=== PATIENT | male | born 1965 | race Caucasian/White ===

== ENCOUNTER → 2017-11-23 | Outpatient (CLI) | payer OTHER ==
[~2017-11-23] MED LIST: ACIPHEX 20 MG T20 MG PO; AMOXICILLIN875 MG PO; ASPIR 8181 M1 PO; FISH OIL 1,0001 EAC5 PO; FLEXERIL PO; GLUCOPHAGE850 MG PO; GLUCOTROL5 MG PO; HYDROCODONE-AP1 EAC6 PO; IBUPROFEN 800800 MG PO; LIPITOR 20 MG T20 M1 PO; LISINOPRIL5 MG PO; METFORMIN HCL500 MG PO; NORCO 5-325 TA1 EACH PO; PROAIR HFA8.5 GM INH; TESSALON PERLE100 MG PO; TRAMADOL 50 MG50 MG PO; VIAGRA100 MG PO; XANAX 0.25 MG0.25 MG PO; XANAX 0.5 MG0.5 MG PO; ZPAK PO
--- NOTE | 2017-12-08 09:02 | PAINCON ---
[address] [address] PAIN MANAGEMENT CONSULTATION Name: MADIE SORIANO JR Room: [facility].#: [id number] Admission: 11/23/17 Attend Phys: Jens Fernandez DO Discharge: Date of : 61 Report #: [id number] THIS REPORT FOR: //name// CC: Jens Briggs DO DATE OF SERVICE: 11/23/2017 REFERRING PHYSICIAN: Karla Briggs DO CHIEF COMPLAINT: Low back pain, right lower extremity pain and paresthesias. HISTORY OF PRESENT ILLNESS: As you know, the patient is a very pleasant 52-year-old male who returns today in followup visit requesting to undergo the next in a series of epidural injections. He reports greater than 50% improvement in overall pain with previous injection, hoping to see similar improvement today. The patient indicates no new injury, no new trauma that may have led to recurrence of symptoms. He is placing pain score at 4/10. He states he is very happy with the results of the injections and is hopeful to see similar improvement with today's procedure to build on success of previous intervention. He has denied any new injury, new trauma that may have led to progression of pain. ALLERGIES: No known drug allergies. CURRENT MEDICATIONS: Aspirin, cyclobenzaprine, hydrocodone, lisinopril, Viagra, Ultram and Xanax. SOCIAL HISTORY: The patient denies tobacco, alcohol, IV or illicit drug use. He is employed as a software quality tester professional, working, not receiving workmen's compensation, unaccompanied today. IMAGING: No new imaging available. PHYSICAL EXAMINATION: VITAL SIGNS: Blood pressure 125/80, pulse 94, respiratory rate 16, unlabored, the patient is 95% on room air, current temperature 98.1 degrees Fahrenheit, height 5 feet 5 inches tall, weight 205 pounds, BMI calculated at 34. GENERAL: Well-developed, well-nourished, well-hydrated 52-year-old male appearing stated age. He is placing current pain score 4/10. HEENT: Normocephalic, atraumatic. Pupils equal, round, reactive to light. EXTREMITIES: Show no clubbing, no cyanosis, no edema. MUSCULOSKELETAL: Seated straight leg raising negative. Supine straight leg raising positive on the right. MAGAN test negative. Muscle bulk and tone equal and [place] [address] PAIN MANAGEMENT CONSULTATION Name: MADIE SORIANO JR Room: [facility]#: [id number] Admission: 11/23/17 Attend Phys: Jens Fernandez DO Discharge: Date of : 61 Report #: [id number] ASSESSMENT: 1. Symptomatic lumbar radiculopathy. 2. Displacement of lumbar intervertebral disk with radiculopathy. 3. Lumbosacral spondylosis with radiculopathy. 4. Chronic intractable pain. PLAN: 1. The patient returns today in followup visit to undergo next in the series of epidural injections. He reports good efficacy with previous injection reporting 50% improvement or better. He is now placing pain score 4/10. He returned today in followup visit to undergo the next in a series of epidural injections in hopes of improving pain further. He has been advised risks and benefits of the procedure, states he understood and wished to proceed. 2. No medication changes were made at today's visit. The patient to continue current medical therapy as previously prescribed. 3. The patient to return to our clinic on an as needed basis for the next in a series of epidural injections. PROCEDURE NOTE DESCRIPTION OF PROCEDURE: Lumbar epidural steroid injection under fluoroscopic guidance. After obtaining written consent, the patient was taken back to fluoroscopy suite, placed in prone position with pillow under abdomen to decrease lumbar lordosis. Skin overlying lumbosacral area then prepped and draped in aseptic fashion. Lumbar intervertebral spaces were identified by AP fluoroscopy. Skin and subcutaneous tissue overlying target site of injection was anesthetized with 3 mL of 1% lidocaine. A 20-gauge 3-1/2 inch Tuohy needle advanced under fluoroscopic guidance towards the epidural space using paramedian approach. Epidural space identified using loss of resistance to air technique. After negative aspiration for heme or cerebrospinal fluid, 1 mL of Omnipaque was injected. Lumbar epidurogram was confirmed using both AP and lateral fluoroscopy. After negative aspiration for heme or cerebrospinal fluid, 5 mL of a solution containing 2 mL 40 mg per mL, 80 mg total triamcinolone, 3 mL lidocaine 1% injected slowly. Needle retracted correction, needle tract flushed with 3 mL of 1% lidocaine. Needle removed. Sterile bandage placed over injection site. No new motor deficits present in the lower extremities following procedure. The patient tolerated the procedure well, carefully escorted to the recovery [address] [place] [address] PAIN MANAGEMENT CONSULTATION Name: MADIE SORIANO JR Room: [facility]#: [id number] Admission: 11/23/17 Attend Phys: Jens Fernandez DO Discharge: Date of : 61 Report #: [id number] room in stable condition. No apparent complications. After meeting discharge criteria, the patient discharged home. <ELECTRONICALLY SIGNED> By: Jens Fernandez DO 12/08/17 0902 0847 1915Jens Fernandez DO /nt
== END | disposition home or self-care (01) ==
LOC: M.PC 00:56
DX: M51.16 Intervertebral disc disorders with radiculopathy, lumbar region (principal); M47.27 Other spondylosis with radiculopathy, lumbosacral region; G89.29 Other chronic pain; Z68.34 Body mass index [BMI] 34.0-34.9, adult; Z79.899 Other long term (current) drug therapy

== ENCOUNTER 2017-12-04 17:17 | Emergency (ER) | payer OTHER ==
[~2017-12-04] VITALS: Ht 162.6 cm; Wt 93.9 kg
[~2017-12-04 17:17] MED LIST changes: -GLUCOPHAGE850 MG PO; -GLUCOTROL5 MG PO; -LIPITOR 20 MG T20 M1 PO; -NORCO 5-325 TA1 EACH PO; -PROAIR HFA8.5 GM INH; -TESSALON PERLE100 MG PO; -XANAX 0.5 MG0.5 MG PO; -ZPAK PO
[2017-12-04] MEDS ORDERED: XANAX 0.5 MG0.5 MG PO (17:32)
[2017-12-04 18:17] LABS: ABSOLUTE LYMPHOCYTES 1.2 thou/uL (0.8-5.3); ABSOLUTE MONOCYTES 0.7 thou/uL (0.0-1.2); ABSOLUTE NEUTROPHILS 5.7 thou/uL (1.6-8.1); BASOPHILS 0.2 %; EOSINOPHILS 0.3 %; HEMATOCRIT 42.8 % (42.0-52.0); HEMOGLOBIN 14.9 gm/dL (14.0-18.0); LYMPHOCYTES 15.2 %; MCH 31.9 pg (26.0-34.0); MCHC 34.7 g/dL (28.0-37.0); MCV 91.9 fL (80.0-100.0); MONOCYTES 9.1 %; MPV 8.1 fl. (7.2-11.1); NUCLEATED RBCS 0 /100WBC; PLATELET COUNT* 266 thou/uL (150-400); POLYS 75.2 %; RBC 4.65 mil/uL (4.50-6.00); RDW-CV 13.4 % (10.5-14.5); WBC 7.6 thou/uL (4.0-11.0)
[2017-12-04 18:23] LABS: PCO2 29.2 mmHg (35.0-45.0); PO2 90.9 mmHg (75.0-100.0); pH 7.403 (7.340-7.450)
[2017-12-04 18:24] LABS: BE -5.6 mmol/L (-2 to +3); HCO3 17.8 mmol/L (22.0-26.0)
[2017-12-04 18:38] LABS: CALCIUM 9.3 mg/dL (8.5-10.1); CREATININE 1.5 mg/dL (0.6-1.3); POTASSIUM 4.5 mmol/L (3.5-5.1)
[2017-12-04 18:39] LABS: ALBUMIN 3.7 g/dL (3.4-5.0); TOTAL BILIRUBIN 0.5 mg/dL (<0.1-1.0); TOTAL PROTEIN 7.5 g/dL (6.4-8.2)
[2017-12-04 19:03] LABS: URINE BILIRUBIN NEGATIVE (Negative); URINE BLOOD NEGATIVE (Negative); URINE CLARITY CLEAR; URINE COLOR STRAW; URINE GLUCOSE-RANDOM 3+ (Negative); URINE KETONES TRACE (Negative); URINE LEUKOCYTES-REFLEX NEGATIVE (Negative); URINE NITRITE-REFLEX NEGATIVE (Negative); URINE PROTEIN NEGATIVE (Negative); URINE UROBILINOGEN 0.2 E.U./dl (0.2-1.0)
[2017-12-04] MEDS ORDERED: GLUCOTROL5 MG PO (19:03)
[2017-12-04] MEDS ORDERED: GLUCOPHAGE850 MG PO (19:03)
[2017-12-04 19:51] VITALS: BP 123/76
--- NOTE | 2017-12-05 11:47 | EKG ---
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[facility] : 1965 Requested By: Feliberto Garner Order Number: [id number] MD: Keyur Carlton Measurements Intervals [place] Rate: 100 P: 49 UT: 127 QRS: 68 QRSD: 97 T: 42 QT: 334 QTc: 431 Interpretive Statements Sinus tachycardia Borderline low voltage, extremity leads No previous ECG available for comparison Electronically Signed On 12-05-2017 11:46:51 MARINE MAMMAL TRAINER by Keyur Carlton [email or web address] <ELECTRONICALLY SIGNED> By: Keyur Carlton MD, [facility] 12/05/17 1146 1738 1738 Keyur Carlton MD, FACC /EPI
[2018-02-09] MEDS ORDERED: TRAMADOL 50 MG50 MG PO (11:51)
[2018-02-09] MEDS ORDERED: NORCO 5-325 TA1 EACH PO (11:52)
== END 2017-12-04 19:53 | disposition home or self-care (01) ==
LOC: M.ERS 17:17
PROVIDERS: Emergency Medicine
DX: E11.65 Type 2 diabetes mellitus with hyperglycemia (principal); I10 Essential (primary) hypertension; K21.9 Gastro-esophageal reflux disease without esophagitis; Z98.890 Other specified postprocedural states

== ENCOUNTER 2017-12-08 13:27 | Emergency (ER) | payer OTHER ==
[~2017-12-08] VITALS: Ht 162.6 cm; Wt 88.5 kg
[~2017-12-08 13:27] MED LIST changes: +GLUCOPHAGE850 MG PO; +GLUCOTROL5 MG PO; +XANAX 0.5 MG0.5 MG PO
[2017-12-08] MEDS ORDERED: METFORMIN HCL500 MG PO (13:43)
[2017-12-08] MEDS ORDERED: LIPITOR 20 MG T20 M1 PO (13:44)
[2017-12-08] MEDS ORDERED: GLUCOTROL5 MG PO (13:44)
[2017-12-08 14:05] LABS: INFLUENZA A ANTIGEN None Detected (None Detect)
[2017-12-08 14:06] LABS: INFLUENZA B ANTIGEN None Detected (None Detect)
[2017-12-08 14:24] LABS: HEMATOCRIT 41.9 % (42.0-52.0); HEMOGLOBIN 14.8 gm/dL (14.0-18.0); MCH 31.3 pg (26.0-34.0); MCHC 35.4 g/dL (28.0-37.0); MCV 88.4 fL (80.0-100.0); MPV 7.5 fl. (7.2-11.1); NUCLEATED RBCS 0 /100WBC; PLATELET COUNT* 246 thou/uL (150-400); RBC 4.74 mil/uL (4.50-6.00); RDW-CV 13.6 % (10.5-14.5); WBC 12.9 thou/uL (4.0-11.0)
[2017-12-08 14:32] LABS: CALCIUM 9.1 mg/dL (8.5-10.1); CREATININE 1.1 mg/dL (0.6-1.3); POTASSIUM 3.9 mmol/L (3.5-5.1)
[2017-12-08 14:37] LABS: ALBUMIN 3.2 g/dL (3.4-5.0); TOTAL BILIRUBIN 0.5 mg/dL (<0.1-1.0)
[2017-12-08 15:28] LABS: ABSOLUTE BASOPHILS 0.1 thou/uL (0.0-0.2); ABSOLUTE LYMPHOCYTES 0.4 thou/uL (0.8-5.3); ABSOLUTE MONOCYTES 1.3 thou/uL (0.0-1.2); ABSOLUTE NEUTROPHILS 11.1 thou/uL (1.6-8.1)
[2017-12-08 15:29] LABS: PLATELET ESTIMATE ADEQUATE
[2017-12-08 16:12] LABS: URINE BILIRUBIN NEGATIVE (Negative); URINE BLOOD NEGATIVE (Negative); URINE CLARITY CLEAR; URINE COLOR YELLOW; URINE GLUCOSE-RANDOM 3+ (Negative); URINE KETONES NEGATIVE (Negative); URINE LEUKOCYTES-REFLEX NEGATIVE (Negative); URINE NITRITE-REFLEX NEGATIVE (Negative); URINE PROTEIN NEGATIVE (Negative); URINE SPECIFIC GRAVITY <= 1.005 (1.005-1.030); URINE UROBILINOGEN 0.2 E.U./dl (0.2-1.0)
[2017-12-08] MEDS ORDERED: ZPAK PO (17:07)
[2017-12-08] MEDS ORDERED: TESSALON PERLE100 MG PO (17:07)
[2017-12-08] MEDS ORDERED: PROAIR HFA8.5 GM INH (17:07)
[2017-12-08 17:31] LABS: TROPONIN-I LEVEL <0.06 ng/mL (<0.06)
[2017-12-08 17:57] VITALS: BP 99/72
--- NOTE | 2017-12-09 11:46 | EKG ---
[place] [address] ELECTROCARDIOGRAM REPORT Name: KERMIT SORIANOMadhav BENOIT Room: [facility]#: [id number] Admission: 12/08/17 Attend Phys: Discharge: 12/08/17 Date of : 61 Report #: [id number] THIS REPORT FOR: //name// [facility] [place] ED Test Date: 2017-12-08 Test Time: 17:47:07 Pat Name: MADIE SORIANO Department: Room: Gender: M Car Inspection And Repair Manager: : 1965 Requested By: Diana Jackson Order Number: [id number] MD: Guy Parker Measurements Intervals [place] Rate: 126 P: 22 DC: 128 QRS: 24 QRSD: 87 T: 2 QT: 305 QTc: 442 Interpretive Statements Sinus tachycardia Probable left atrial enlargement Low voltage, extremity leads Baseline wander in lead(s) V1 Compared to ECG 12/04/2017 17:38:10 rate increased Electronically Signed On 12-09-2017 11:46:23 COMPOSITION PROFESSOR by Guy Parker [email or web address] <ELECTRONICALLY SIGNED> By: Guy Parker MD, [facility] 12/09/17 1146 1747 1747 Guy Parker MD, [facility] /EPI
[2018-02-09] MEDS ORDERED: TRAMADOL 50 MG50 MG PO (11:51)
[2018-02-09] MEDS ORDERED: NORCO 5-325 TA1 EACH PO (11:52)
== END 2017-12-08 17:58 | disposition home or self-care (01) ==
LOC: M.ERS 13:27
PROVIDERS: Nurse Practitioner Family
DX: J20.9 Acute bronchitis, unspecified (principal); K21.9 Gastro-esophageal reflux disease without esophagitis; E11.9 Type 2 diabetes mellitus without complications

== ENCOUNTER → 2018-02-09 | Outpatient (CLI) | payer OTHER ==
[~2018-02-09] MED LIST changes: +LIPITOR 20 MG T20 M1 PO; +NORCO 5-325 TA1 EACH PO; +PROAIR HFA8.5 GM INH; +TESSALON PERLE100 MG PO; +ZPAK PO
--- NOTE | 2018-02-17 08:21 | PAINCON ---
[address] [address] PAIN MANAGEMENT CONSULTATION Name: MADIE SORIANO JR [id number] Admission: 02/09/18 Attend Phys: Bijal Graves MD Discharge: Date of : 61 Report #: [id number] THIS REPORT FOR: //name// CC: Karla Delarosa DATE OF SERVICE: 02/09/2018 PRIMARY CARE PHYSICIAN: Karla Briggs DO. CHIEF COMPLAINT: Low back pain. FOLLOWUP HISTORY: The patient is a 52-year-old gentleman who has been seen in the Pain Clinic because of low back pain. He has a longstanding history of low back pain involving the right lower extremity with paresthesias. He indicates the epidural steroid injections have been helpful in the past. He denies any injury or trauma in the past. He has had epidural steroid injections dating back to 2002 with good efficacy. He is having pain in this similar lumbar distribution. He has had conservative medical therapy in the past with home stretching exercises and medical management. Those have proved ineffective. He has been seen by Dr. Jens Fernandez and undergone epidural steroid injections. He has returned today for another epidural steroid injection. Pain is worse with prolonged standing, prolonged sitting and finds that medication and rest appear to be the only items that continue to improve his level of comfort. ALLERGIES: No known drug allergies. CURRENT MEDICATIONS: Include: 1. ProAir p.r.n. use of 1-2 puffs albuterol inhaler. 2. Lipitor 20 mg tablets. 3. Hydrocodone 5/325 one p.o. q. 6 hours p.r.n. pain. 4. Lisinopril 5 mg daily. 5. Metformin 500 mg for a total of 1000 daily with meals. 6. Tramadol 50 mg q. 6 hours p.r.n. PAST MEDICAL HISTORY: 1. Diabetes type 2. 2. Hypertension. 3. Obstructive sleep apnea. 4. Gastroesophageal reflux disease. 5. Chronic low back pain. PAST SURGICAL HISTORY: Cervical spine surgery, 01/2013. SOCIAL HISTORY: He is a quality assurance intern worker. [place] [address] PAIN MANAGEMENT CONSULTATION Name: MADIE SORIANO Room: [facility]#: [id number] Admission: 02/09/18 Attend Phys: Bijal Graves MD Discharge: Date of : 61 Report #: [id number] juncture. Denies tobacco, alcohol, or illicit drugs. REVIEW OF SYSTEMS: Questionnaire in the chart indicate wears glasses, frequent urination, dysuria, nocturia, change in force with his stream, joint stiffness, swelling, muscle pain, cramping low back difficulties, insomnia, depression. A 14-point review of systems. PAIN ASSESSMENT: The patient does have some right knee pain with osteoarthritic changes. Height 5 feet 5 inches, weight 210 pounds, BMI is 35. VITAL SIGNS: Blood pressure 121/72, heart rate 90, respiratory rate 16, room air saturation 96%, temperature 98.4. Pain intensity rated as 2-3. The patient does use Biofreeze. Fall risk. The patient has not fallen in the last 3 months. The patient is not on blood thinner. Hypertension. The patient is not being treated for hypertension. Opioid use greater than 6 weeks. The patient is receiving opioids through the Pain Clinic. RISK ASSESSMENT TOOL. Functional assessment tool. Recreational drug use. The patient denies recreational drug use. Tobacco: The patient denies use of tobacco and alcohol. The patient denies use of alcoholic beverages. PHYSICAL EXAMINATION: GENERAL: The patient is a well-developed, well-nourished male. Appearance, appears his stated age. Orientation: The patient is alert and oriented x 3. AFFECT: The patient's affect is appropriate. HEENT: Normocephalic, atraumatic. Extraocular eye muscles intact, hearing within normal limits. Sclerae nonicteric. Mucous membranes moist. NEUROLOGIC: Cranial nerves 2-12 grossly intact. Speech fluent. NECK: Without adenopathy. LUNGS: Clear. No wheezing or rhonchi. ABDOMEN: Soft, obese, nontender. EXTREMITIES: No clubbing, cyanosis or edema. Upper muscle strength is judged to be 5/5 for the major muscle groups. Lower extremity, 5/5 for the major muscle groups. The patient has some pain in the right knee. Lumbar provocation testing with extension, rotation, left and right lateral bending does cause some increased axial back pain. IMPRESSION: 1. Lumbosacral spondylosis with history of radiculopathy involving pain radiating down into the L5-S1 distribution on the right. 2. Chronic low back pain. 3. [place] [address] PAIN MANAGEMENT CONSULTATION Name: MADIE SORIANO JR Room: [facility]#: [id number] Admission: 02/09/18 Attend Phys: Bijal Graves MD Discharge: Date of : 61 Report #: [id number] 4. Diabetes. RECOMMENDATIONS: We discussed treatment options with the patient. He states that he underwent an epidural steroid injection in about November. First injection was not problematic with his blood sugar. Second epidural steroid injection caused the patient to have elevated blood sugars. He checked his blood sugar. Notes that it was higher than account the sensor, went to the Emergency Room and sugar was found to be 650. He was given a shot of insulin. His doctor made some changes to his oral medication. He noticed that it took "about 3 weeks for his blood sugars to return to normal." He noticed about 50% improvement after the last injection. He rates his pain as a 3/10 today. Still has pain that is radiating down the right L5-S1 dermatomal distribution. He would like to proceed with another epidural injection today. We have discussed the possible complications of the injection. They could include increase in his blood sugar. He should maintain/monitor his blood sugars in a normal range. He finds his blood sugars are elevated. He should contact his primary physician and if he notes that his blood sugars are quite elevated above 300, he should consider going to the Emergency Room for additional assistance and control his blood sugars. He elects to proceed with the procedure. PROCEDURE NOTE: The patient was taken to the procedure area. He was assisted in getting on the examination table. His back was sterilely prepped with Betadine. Fluoroscopy using anterior, posterior as well as lateral viewing was used to identify the appropriate target point. This area was then infiltrated with 0.25% bupivacaine. A total of 80 mg Depo-Medrol was injected. The patient tolerated the procedure well. There were no complications. He remained in the Pain Clinic for an appropriate amount of time. There was no bleeding. A Band-Aid was placed. He will follow up in the future as needed. Again, he will monitor his blood sugar levels. <ELECTRONICALLY SIGNED> By: Bijal Graves MD 02/17/18 0821 2036 [id number]. Alan Graves MD /[facility]
== END ==
LOC: M.PC 01-21 09:00
DX: M47.27 Other spondylosis with radiculopathy, lumbosacral region (principal); G89.29 Other chronic pain; M54.5 Low back pain; E11.9 Type 2 diabetes mellitus without complications; I10 Essential (primary) hypertension; G47.33 Obstructive sleep apnea (adult) (pediatric); K21.9 Gastro-esophageal reflux disease without esophagitis; Z79.899 Other long term (current) drug therapy; Z98.890 Other specified postprocedural states; Z79.891 Long term (current) use of opiate analgesic

== ENCOUNTER 2018-11-11 14:18 | Emergency (ER) | payer OTHER ==
[~2018-11-11] VITALS: Ht 162.6 cm; Wt 95.3 kg
[2018-11-11] MEDS ORDERED: COLD & FLU SEV1 EACH PO (14:24)
[2018-11-11 16:31] LABS: INFLUENZA A ANTIGEN None Detected (None Detect); INFLUENZA B ANTIGEN None Detected (None Detect)
[2018-11-11] MEDS ORDERED: MEDROLDOSEPACK PO (16:35)
[2018-11-11] MEDS ORDERED: TESSALON PERLE100 MG PO (16:35)
[2018-11-11] MEDS ORDERED: ZPAK PO (16:35)
[2018-11-11] MEDS ORDERED: VENTOLIN HFA 1818 GM INH (16:35)
[2018-11-11 16:47] VITALS: BP 133/84
== END 2018-11-11 16:48 | disposition home or self-care (01) ==
LOC: M.ERS 14:18
PROVIDERS: Nurse Practitioner Family
DX: J20.9 Acute bronchitis, unspecified (principal); K21.9 Gastro-esophageal reflux disease without esophagitis; E11.9 Type 2 diabetes mellitus without complications